=== PATIENT | female | born 2005 | race Caucasian/White ===

== ENCOUNTER 2025-05-26 14:52 | Outpatient (CLI) | payer OTHER | END 2025-05-26 14:53 | disposition home or self-care (01) | LOC: CSHCT 14:52 | PROVIDERS: ATTEND Orthopaedic Surgery Orthopaedic Surgery of the Spine | DX: M47.816 Spondylosis without myelopathy or radiculopathy, lumbar region (principal); M54.50 Low back pain, unspecified; M48.46XA Fatigue fracture of vertebra, lumbar region, initial encounter for fracture; M43.16 Spondylolisthesis, lumbar region; M48.061 Spinal stenosis, lumbar region without neurogenic claudication | CPT/HCPCS: 72131 ==